=== PATIENT | male | born 1965 | race African-American/Black ===

== ENCOUNTER 2020-02-29 00:36 | Inpatient (IN) | payer MEDICAID, OTHER ==
[~2020-02-29] VITALS: Ht 200.7 cm; Wt 124.1 kg
[2020-02-29] MEDS ORDERED: LEVE750T66 PO (00:52)
[2020-02-29] MEDS ORDERED: LOSA100T58 PO (00:52)
[2020-02-29] MEDS ORDERED: HYDR-4174 PO (00:52)
[2020-02-29] MEDS ORDERED: CARV25TA32 PO (00:52)
[2020-02-29] MEDS ORDERED: TRAZ150 PO (00:58)
[2020-02-29 01:08] LABS: BASOPHILS % (AUTO) 1.6 % (0.0-2.0); EOSINOPHILS % (AUTO) 1.3 % (1.0-6.0); HEMATOCRIT 34.8 % (41-53); HEMOGLOBIN 11.7 g/dL (13.5-17.5); LYMPHOCYTES # (AUTO) 1.9 K/uL (1.0-4.8); LYMPHOCYTES % (AUTO) 34.4 % (22.0-44.0); MEAN CORPUSCULAR HEMOGLOBIN 28.5 pg (26.0-34.0); MEAN CORPUSCULAR HGB CONC 33.7 G/dL (31.0-37.0); MEAN CORPUSCULAR VOLUME 85 fL (80-100); MONOCYTES # (AUTO) 0.7 K/uL (0.1-1.0); NEUTROPHILS # (AUTO) 2.8 K/uL (1.8-7.7); NEUTROPHILS % (AUTO) 49.7 % (40.0-70.0); PLATELET COUNT (AUTO) 148 K/uL (150-450); RED BLOOD CELL COUNT(AUTO) 4.11 MIL/uL (4.50-5.90); RED CELL DISTRIBUTION WIDTH 13.5 % (11.5-14.5)
[2020-02-29 01:24] LABS: ALANINE AMINOTRANSFERASE 28 U/L (12-78); ALBUMIN 3.7 g/dL (3.4-5.0); ALKALINE PHOSPHATASE 87 U/L (46-116); ASPARTATE AMINOTRANSFERASE 23 U/L (15-37); BILIRUBIN,TOTAL 0.2 mg/dL (0.1-1.0); CALCIUM, TOTAL 9.1 mg/dL (8.8-10.5); CARBON DIOXIDE 29 mmol/L (22-29); CHLORIDE 105 mmol/L (98-107); CREATININE 1.13 mg/dL (0.60-1.30); GLOMERULAR FILTR. RATE CALC > 60 mL/min (>60); GLUCOSE,RANDOM 107 mg/dL (70-110); TOTAL PROTEIN, SERUM 6.7 g/dL (6.4-8.2); UREA NITROGEN, BLOOD 16 mg/dL (7-18)
[2020-02-29 01:27] LABS: SALICYLATE < 2.8 mg/dL (2.8-20.0)
[2020-02-29 01:32] LABS: AMPHET/METH SCREEN,URINE NEGATIVE (NEGATIVE); BARBITURATE SCREEN, URINE NEGATIVE (NEGATIVE); BENZODIAZEPINES SCREEN,URINE NEGATIVE (NEGATIVE); CANNABINOID SCREEN,URINE NEGATIVE (NEGATIVE); COCAINE SCREEN,URINE NEGATIVE (NEGATIVE); METHADONE SCREEN, URINE NEGATIVE (NEGATIVE); OPIATE SCREEN,URINE NEGATIVE (NEGATIVE)
[2020-02-29 01:34] LABS: ANION GAP 9 mmol/L (8-16); POTASSIUM 3.1 mmol/L (3.5-5.1); SODIUM SERUM 143 mmol/L (136-145)
[2020-02-29 01:34] LABS: PHENCYCLIDINE SCREEN,URINE NEGATIVE (NEGATIVE)
[2020-02-29 01:35] LABS: ACETAMINOPHEN < 2 mcg/mL (10-30)
[2020-02-29] MEDS ORDERED: POTASSIUM CHLORIDE 20 MEQ ER TABLET PO ONE (03:30)
[2020-02-29] MEDS ORDERED: ZOLPIDEM TARTRATE 10 MG TABLET PO PRN (11:30)
[2020-02-29] MEDS ORDERED: HALOPERIDOL 5 MG TABLET PO PRN (11:30)
[2020-02-29 17:36] VITALS: BP 149/98
[2020-02-29] MEDS: LevETIRAcetam 500 MG TABLET PO SCH (18:49)
[2020-02-29] MEDS: MIRTAZAPINE 15 MG TABLET PO SCH (20:12)
[2020-03-01] MEDS ORDERED: PNEUMOCOCCAL VACCINE POLYVALENT 0.5 ML VIAL [PPSV23] IM ONE (07:45)
[2020-03-01 09:00] VITALS: BP 148/99
[2020-03-01] MEDS ORDERED: CloNIDine HCL 0.1 MG TABLET PO PRN (09:00)
[2020-03-01] MEDS ORDERED: NICOTINE 14 MG/24 HOUR PATCH TD PRN (09:00)
[2020-03-01] MEDS ORDERED: [UNRECOGNIZED DRUG - OTHER] PO SCH (09:00)
[2020-03-01] MEDS ORDERED: MAGNESIUM HYDROXIDE SUSPENSION 30 ML UDCUP PO PRN (09:00)
[2020-03-01] MEDS ORDERED: GuaiFENesin/D-METHORPHAN [SUGAR-FREE] 200-20MG/10 ML SYRUP UDCUP PO PRN (09:00)
[2020-03-01] MEDS ORDERED: PETROLATUM,WHITE 28 GM JELLY TP PRN (09:00)
[2020-03-01] MEDS ORDERED: LOPERAMIDE HCL 2 MG CAPSULE PO PRN (09:00)
[2020-03-01] MEDS ORDERED: ACETAMINOPHEN 325 MG TABLET PO PRN (09:00)
[2020-03-01] MEDS ORDERED: [UNRECOGNIZED DRUG - OTHER] PO SCH (09:00)
[2020-03-01] MEDS ORDERED: IBUPROFEN 400 MG TABLET PO PRN (09:00)
[2020-03-01] MEDS ORDERED: ONDANSETRON HCL 4 MG TABLET PO PRN (09:00)
[2020-03-01] MEDS ORDERED: DOCUSATE SODIUM 100 MG CAPSULE PO PRN (09:00)
[2020-03-01] MEDS ORDERED: ALBUTEROL SULFATE HFA 90 MCG/PUFF 8 GM INHALER IH PRN (09:00)
[2020-03-01] MEDS ORDERED: MAG HYDROX/AL HYDROX/SIMETH ES 30 ML SUSPENSION UDCUP PO PRN (09:00)
[2020-03-01] MEDS: HydrALAZINE HCL 50 MG TABLET PO SCH (09:22)
[2020-03-01] MEDS: CARVEDILOL 25 MG TABLET PO SCH (09:22)
[2020-03-01] MEDS: LevETIRAcetam 500 MG TABLET PO SCH (09:23)
[2020-03-01] MEDS: LevETIRAcetam 250 MG TABLET PO SCH ×2 (09:30→16:23)
[2020-03-01] MEDS ORDERED: LOSARTAN POTASSIUM 50 MG TABLET PO SCH (09:30)
[2020-03-01] MEDS ORDERED: LevETIRAcetam 250 MG TABLET PO ONE (11:00)
[2020-03-01 18:59] VITALS: BP 135/78
[2020-03-01] MEDS: MIRTAZAPINE 15 MG TABLET PO SCH (20:09)
[2020-03-02] MEDS: CARVEDILOL 25 MG TABLET PO SCH (08:20)
[2020-03-02] MEDS: HydrALAZINE HCL 50 MG TABLET PO SCH (08:20)
[2020-03-02] MEDS: LevETIRAcetam 250 MG TABLET PO SCH ×2 (08:21→16:35)
[2020-03-02] MEDS: LOSARTAN POTASSIUM 50 MG TABLET PO SCH (08:21)
[2020-03-02 08:34] VITALS: BP 144/89
[2020-03-02 17:40] VITALS: BP 155/95
[2020-03-02] MEDS: MIRTAZAPINE 15 MG TABLET PO SCH (20:06)
[2020-03-03 08:27] VITALS: BP 124/64
[2020-03-03] MEDS: LOSARTAN POTASSIUM 50 MG TABLET PO SCH (08:29)
[2020-03-03] MEDS: CARVEDILOL 25 MG TABLET PO SCH (08:29)
[2020-03-03] MEDS: HydrALAZINE HCL 50 MG TABLET PO SCH (08:29)
[2020-03-03] MEDS: LevETIRAcetam 250 MG TABLET PO SCH ×2 (08:29→16:28)
[2020-03-03 16:48] VITALS: BP 135/97
[2020-03-03] MEDS: MIRTAZAPINE 30 MG TABLET PO SCH (20:18)
[2020-03-04 09:00] VITALS: BP 128/87
[2020-03-04] MEDS: LevETIRAcetam 250 MG TABLET PO SCH ×2 (09:01→16:19)
[2020-03-04] MEDS: CARVEDILOL 25 MG TABLET PO SCH (09:02)
[2020-03-04] MEDS: LOSARTAN POTASSIUM 50 MG TABLET PO SCH (09:02)
[2020-03-04] MEDS: HydrALAZINE HCL 50 MG TABLET PO SCH (09:02)
[2020-03-04 18:05] VITALS: BP 139/94
[2020-03-04] MEDS: MIRTAZAPINE 30 MG TABLET PO SCH (20:28)
[2020-03-05] MEDS: LevETIRAcetam 250 MG TABLET PO SCH ×2 (08:33→16:24)
[2020-03-05] MEDS: LOSARTAN POTASSIUM 50 MG TABLET PO SCH (08:33)
[2020-03-05] MEDS: CARVEDILOL 25 MG TABLET PO SCH (08:34)
[2020-03-05] MEDS: HydrALAZINE HCL 50 MG TABLET PO SCH (08:34)
[2020-03-05 09:25] VITALS: BP 158/97
[2020-03-05 18:11] VITALS: BP 147/98
[2020-03-05] MEDS: MIRTAZAPINE 30 MG TABLET PO SCH (20:37)
[2020-03-06] MEDS: LevETIRAcetam 250 MG TABLET PO SCH ×2 (08:49→16:04)
[2020-03-06] MEDS: LOSARTAN POTASSIUM 50 MG TABLET PO SCH (08:49)
[2020-03-06] MEDS: HydrALAZINE HCL 50 MG TABLET PO SCH (08:49)
[2020-03-06] MEDS: CARVEDILOL 25 MG TABLET PO SCH (08:50)
[2020-03-06] MEDS: AmLODIPine BESYLATE 10 MG TABLET PO SCH (08:50)
[2020-03-06] MEDS: ASPIRIN 81 MG CHEWABLE TABLET PO SCH (09:00)
[2020-03-06 10:13] VITALS: BP 166/97
[2020-03-06 18:00] VITALS: BP 151/87
[2020-03-06] MEDS: MIRTAZAPINE 30 MG TABLET PO SCH (20:07)
[2020-03-07] MEDS: LevETIRAcetam 250 MG TABLET PO SCH ×2 (08:03→16:45)
[2020-03-07] MEDS: LOSARTAN POTASSIUM 50 MG TABLET PO SCH (08:03)
[2020-03-07] MEDS: CARVEDILOL 25 MG TABLET PO SCH (08:03)
[2020-03-07] MEDS: AmLODIPine BESYLATE 10 MG TABLET PO SCH (08:03)
[2020-03-07] MEDS: HydrALAZINE HCL 50 MG TABLET PO SCH (08:03)
[2020-03-07] MEDS: ASPIRIN 81 MG CHEWABLE TABLET PO SCH (08:04)
[2020-03-07 08:34] VITALS: BP 148/103
[2020-03-07 16:30] VITALS: BP 124/83
[2020-03-07] MEDS: MIRTAZAPINE 30 MG TABLET PO SCH (20:46)
[2020-03-08 07:37] LABS: CHOL/HDL RATIO 4.3 (4.2-7.3)
[2020-03-08] MEDS: ASPIRIN 81 MG CHEWABLE TABLET PO SCH (08:27)
[2020-03-08] MEDS: LOSARTAN POTASSIUM 50 MG TABLET PO SCH (08:27)
[2020-03-08] MEDS: LevETIRAcetam 250 MG TABLET PO SCH ×2 (08:27→16:39)
[2020-03-08] MEDS: AmLODIPine BESYLATE 10 MG TABLET PO SCH (08:27)
[2020-03-08] MEDS: CARVEDILOL 25 MG TABLET PO SCH (08:27)
[2020-03-08] MEDS: HydrALAZINE HCL 50 MG TABLET PO SCH (08:27)
[2020-03-08 09:00] VITALS: BP 142/93
[2020-03-08 16:42] VITALS: BP 118/79
[2020-03-08] MEDS: MIRTAZAPINE 30 MG TABLET PO SCH (20:14)
[2020-03-09 08:00] VITALS: BP 143/97
[2020-03-09] MEDS: LOSARTAN POTASSIUM 50 MG TABLET PO SCH (08:39)
[2020-03-09] MEDS: ASPIRIN 81 MG CHEWABLE TABLET PO SCH (08:39)
[2020-03-09] MEDS: HydrALAZINE HCL 50 MG TABLET PO SCH (08:39)
[2020-03-09] MEDS: LevETIRAcetam 250 MG TABLET PO SCH ×2 (08:39→16:10)
[2020-03-09] MEDS: AmLODIPine BESYLATE 10 MG TABLET PO SCH (08:39)
[2020-03-09] MEDS: CARVEDILOL 25 MG TABLET PO SCH (08:39)
[2020-03-09 16:35] VITALS: BP 141/84
[2020-03-09] MEDS: MIRTAZAPINE 30 MG TABLET PO SCH (20:31)
[2020-03-10 08:00] VITALS: BP 134/82
[2020-03-10] MEDS: LevETIRAcetam 250 MG TABLET PO SCH ×2 (08:34→16:14)
[2020-03-10] MEDS: ASPIRIN 81 MG CHEWABLE TABLET PO SCH (08:34)
[2020-03-10] MEDS: LOSARTAN POTASSIUM 50 MG TABLET PO SCH (08:34)
[2020-03-10] MEDS: AmLODIPine BESYLATE 10 MG TABLET PO SCH (08:34)
[2020-03-10] MEDS: HydrALAZINE HCL 50 MG TABLET PO SCH (08:34)
[2020-03-10] MEDS: CARVEDILOL 25 MG TABLET PO SCH (08:35)
[2020-03-10 16:26] VITALS: BP 135/88
[2020-03-10] MEDS: MIRTAZAPINE 30 MG TABLET PO SCH (20:45)
[2020-03-11 08:00] VITALS: BP 135/92
[2020-03-11] MEDS: CARVEDILOL 25 MG TABLET PO SCH (08:08)
[2020-03-11] MEDS: LevETIRAcetam 250 MG TABLET PO SCH ×2 (08:08→16:21)
[2020-03-11] MEDS: HydrALAZINE HCL 50 MG TABLET PO SCH (08:08)
[2020-03-11] MEDS: LOSARTAN POTASSIUM 50 MG TABLET PO SCH (08:08)
[2020-03-11] MEDS: ASPIRIN 81 MG CHEWABLE TABLET PO SCH (08:08)
[2020-03-11] MEDS: AmLODIPine BESYLATE 10 MG TABLET PO SCH (08:08)
[2020-03-11 17:00] VITALS: BP 146/86
[2020-03-11] MEDS: MIRTAZAPINE 30 MG TABLET PO SCH (20:45)
[2020-03-11] MEDS: LORazepam 2 MG TABLET PO PRN (20:45)
[2020-03-12 08:00] VITALS: BP 134/76
[2020-03-12] MEDS: HydrALAZINE HCL 50 MG TABLET PO SCH (08:27)
[2020-03-12] MEDS: LevETIRAcetam 250 MG TABLET PO SCH ×2 (08:27→16:04)
[2020-03-12] MEDS: CARVEDILOL 25 MG TABLET PO SCH (08:27)
[2020-03-12] MEDS: LOSARTAN POTASSIUM 50 MG TABLET PO SCH (08:27)
[2020-03-12] MEDS: ASPIRIN 81 MG CHEWABLE TABLET PO SCH (08:28)
[2020-03-12] MEDS: AmLODIPine BESYLATE 10 MG TABLET PO SCH (08:28)
[2020-03-12 16:42] VITALS: BP 128/88
[2020-03-12] MEDS: MIRTAZAPINE 30 MG TABLET PO SCH (20:09)
[2020-03-12] MEDS: LORazepam 2 MG TABLET PO PRN (20:10)
[2020-03-13] MEDS: ASPIRIN 81 MG CHEWABLE TABLET PO SCH (08:26)
[2020-03-13] MEDS: LOSARTAN POTASSIUM 50 MG TABLET PO SCH (08:27)
[2020-03-13] MEDS: HydrALAZINE HCL 50 MG TABLET PO SCH (08:27)
[2020-03-13] MEDS: LevETIRAcetam 250 MG TABLET PO SCH ×2 (08:27→17:18)
[2020-03-13] MEDS: CARVEDILOL 25 MG TABLET PO SCH (08:27)
[2020-03-13] MEDS: AmLODIPine BESYLATE 10 MG TABLET PO SCH (08:27)
[2020-03-13 10:44] VITALS: BP 112/79
[2020-03-13 17:40] VITALS: BP 135/96
[2020-03-13] MEDS: LORazepam 2 MG TABLET PO PRN (20:47)
[2020-03-13] MEDS: MIRTAZAPINE 30 MG TABLET PO SCH (20:48)
[2020-03-14 08:00] VITALS: BP 145/98
[2020-03-14] MEDS: AmLODIPine BESYLATE 10 MG TABLET PO SCH (08:20)
[2020-03-14] MEDS: LOSARTAN POTASSIUM 50 MG TABLET PO SCH (08:20)
[2020-03-14] MEDS: ASPIRIN 81 MG CHEWABLE TABLET PO SCH (08:20)
[2020-03-14] MEDS: HydrALAZINE HCL 50 MG TABLET PO SCH (08:20)
[2020-03-14] MEDS: LevETIRAcetam 250 MG TABLET PO SCH ×2 (08:20→16:03)
[2020-03-14] MEDS: CARVEDILOL 25 MG TABLET PO SCH (08:20)
[2020-03-14 16:17] VITALS: BP 140/89
[2020-03-14] MEDS: LORazepam 2 MG TABLET PO PRN (20:23)
[2020-03-14] MEDS: MIRTAZAPINE 30 MG TABLET PO SCH (20:23)
[2020-03-15] MEDS: ASPIRIN 81 MG CHEWABLE TABLET PO SCH (08:29)
[2020-03-15] MEDS: LevETIRAcetam 250 MG TABLET PO SCH ×2 (08:29→16:43)
[2020-03-15] MEDS: AmLODIPine BESYLATE 10 MG TABLET PO SCH (08:29)
[2020-03-15] MEDS: CARVEDILOL 25 MG TABLET PO SCH (08:29)
[2020-03-15] MEDS: LOSARTAN POTASSIUM 50 MG TABLET PO SCH (08:29)
[2020-03-15] MEDS: HydrALAZINE HCL 50 MG TABLET PO SCH (08:30)
[2020-03-15 09:48] VITALS: BP 154/96
[2020-03-15] MEDS ORDERED: MIRT30 PO (15:38)
[2020-03-15] MEDS ORDERED: ASPI-728 PO (15:38)
[2020-03-15] MEDS ORDERED: AMLO-258 PO (15:38)
[2020-03-15 17:12] VITALS: BP 152/95
[2020-03-15] MEDS: MIRTAZAPINE 30 MG TABLET PO SCH (20:30)
[2020-03-15] MEDS: LORazepam 2 MG TABLET PO PRN (20:30)
== END 2020-03-16 06:30 | disposition home or self-care (01) | DRG 751 ==
LOC: EMS 00:36 → 3EC 11:29
PROVIDERS: ADMIT Psychiatry & Neurology Child & Adolescent Psychiatry; ATTEND Psychiatry & Neurology Child & Adolescent Psychiatry
DX: F33.2 Major depressive disorder, recurrent severe without psychotic features (principal); F41.9 Anxiety disorder, unspecified; E78.00 Pure hypercholesterolemia, unspecified; I10 Essential (primary) hypertension; G47.33 Obstructive sleep apnea (adult) (pediatric); D64.9 Anemia, unspecified; E87.6 Hypokalemia; E78.5 Hyperlipidemia, unspecified; G40.909 Epilepsy, unspecified, not intractable, without status epilepticus; T50.902A Poisoning by unspecified drugs, medicaments and biological substances, intentional self-harm, initial encounter; Z59.0 Homelessness; M19.90 Unspecified osteoarthritis, unspecified site; F10.10 Alcohol abuse, uncomplicated; Y90.6 Blood alcohol level of 120-199 mg/100 ml; D69.6 Thrombocytopenia, unspecified; Y92.89 Other specified places as the place of occurrence of the external cause
CPT/HCPCS: 84132; 87081; 93005; 94660; G0480; G0481

== ENCOUNTER 2020-03-16 11:14 | Emergency (ER) | payer MEDICAID, OTHER ==
[~2020-03-16] VITALS: Ht 195.6 cm; Wt 109.1 kg
[~2020-03-16 11:14] MED LIST: AMLO-258 PO; ASPI-728 PO; CARV25TA32 PO; HYDR-4174 PO; LEVE750T66 PO; LOSA100T58 PO; MIRT30 PO; TRAZ150 PO
[2020-03-16 11:16] VITALS: BP 133/85
== END 2020-03-16 14:24 | disposition home or self-care (01) ==
LOC: EMS 11:17
DX: Z20.828 Contact with and (suspected) exposure to other viral communicable diseases (principal); E78.00 Pure hypercholesterolemia, unspecified; I10 Essential (primary) hypertension; Z79.82 Long term (current) use of aspirin
CPT/HCPCS: 87426; 99283; U0003